=== PATIENT | female | born 1945 | race Caucasian/White ===

== ENCOUNTER 2023-11-09 22:17 | Emergency (ER) | payer MEDICARE, BC, OTHER, SELFPAY ==
--- NOTE | 2023-11-09 | ECG_ITS ---
Test Reason : ABD PAIN Blood Pressure : / mmHG Vent. Rate : 076 BPM Atrial Rate : 076 BPM P-R Int : 162 ms QRS Dur : 086 ms QT Int : 368 ms P-R-T Axes : 049 031 037 degrees QTc Int : 414 ms Normal sinus rhythm Normal ECG No previous ECGs available Referred By: Generic ED Physician Electronically Signed By:IOANA BRO
--- NOTE | ~2023-11-09 | CT_ITS ---
EXAMINATION: CT ABDOMEN AND PELVIS WITH CONTRAST CLINICAL INFORMATION: Left lower quadrant pain. COMPARISON: None available. TECHNIQUE: Multidetector volumetric images were obtained from the superior aspect of the liver through the pubic symphysis following administration 85 mL of Omnipaque 350 intravenous contrast. Sagittal and coronal reformatted images were obtained on the technologist's workstation. Oral contrast: No This CT examination was performed using dose optimization techniques as appropriate, variously including the following: *Automated exposure control *Adjustment of mA and/or kV according to patient size (this includes techniques or standardized protocols for targeted exams where dose is matched to indication/reason for exam; i.e. extremities or head) *Use of iterative reconstruction technique DLP: 571 mGy-cm FINDINGS: LUNG BASES: The visualized lung bases are unremarkable. LIVER, GALLBLADDER, AND BILIARY TREE: The liver is normal in size, shape, and attenuation. No focal hepatic lesion or biliary ductal dilatation is present. Multiple gallstones are noted. PANCREAS: Unremarkable. SPLEEN: Unremarkable. ADRENAL GLANDS: Unremarkable. KIDNEYS AND URETERS: The kidneys are normal in size, shape, and attenuation. No hydronephrosis, hydroureter, or calculi seen. No perinephric stranding. There is a 2.3 cm cyst upper pole left kidney. BLADDER: Unremarkable. GASTROINTESTINAL TRACT: Distal descending/sigmoid colon diverticulosis with proximal sigmoid colonic thickening and surrounding infiltration. The appendix is not identified. ABDOMINAL WALL: No significant hernia is appreciated. LYMPH NODES: Normal. VASCULAR: There is atherosclerotic plaque of the abdominal aorta and proximal branches. 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 PELVIC VISCERA: 3.5 cm low-density structure within the right adnexa with low attenuation values consistent with that of simple fluid. OSSEOUS STRUCTURES: There is diffuse thoracolumbar degenerative change. CT/CT abdomen pelvis w IV con IMPRESSION: 1. Acute sigmoid diverticulitis. 2. Cholelithiasis. 3. 3.5 cm low-density structure within the right adnexa with low attenuation values consistent with that of simple fluid. 4. Atherosclerotic plaque of the abdominal aorta and proximal branches. 1 cm splenic artery aneurysm. Fleischner guidelines were followed.
[2023-11-09 22:19] VITALS: BP 188/94; PULSE 82; RESP 18; TEMP 36.6; O2SAT 98; BMI 25.2
[2023-11-09 23:05] LABS: MANUAL DIFF FLAG NO
[2023-11-09 23:06] LABS: Basophils Absolute Auto 0.1 X10*3/uL (0.0-0.2); Basophils Percent Auto 0.5 % (0-2); Eosinophils Absolute Auto 0.1 X10*3/uL (0.0-0.4); Eosinophils Percent Auto 1.3 % (0-4); Hematocrit 37.4 % (37.0-47.0); Hemoglobin 12.6 g/dl (12.0-16.0); Imm Gran Abs Auto 0.04 X10*3/uL (0.00-0.03); Imm Gran Pct Auto 0.4 % (0.0-0.4); Lymphocytes Absolute Auto 1.8 X10*3/uL (1.2-4.9); Lymphocytes Percent Auto 17.2 % (20-40); Mean Corpuscular HGB Conc 33.7 g/dl (31.0-35.0); Mean Platelet Volume 10.2 fL (9.4-12.3); Monocytes Absolute Auto 0.8 X10*3/uL (0.1-1.2); Monocytes Percent Auto 7.5 % (2-11); Neutrophils Absolute Auto 7.8 x10*3/uL (2.0-8.3); Neutrophils Percent Auto 73.1 % (45-73); Platelet Count 269 X10*3/uL (160-400); Red Cell Distribution Width 13.2 % (11.0-16.0); White Blood Count 10.6 X10*3/uL (4.8-10.8)
--- NOTE | 2023-11-09 23:11 | ED.ABDPAIN ---
HPI - Abdominal Pain General Chief Complaint: Abdominal Pain Stated Complaint: left side abd pain Time Seen by Provider: 11/09/23 23:09 Source: patient Mode of arrival: ambulatory Limitations: no limitations History of Present Illness ED Provider: akua RICO narrative: Patient 78 years old with history of ischemic colitis and diverticulitis in the past comes here for similar pain in left lower quadrant started earlier today with nausea no blood in his stool no fever no chills no urinary complaint Related Data Previous Rx's ?Medication ?Instructions ?Recorded ciprofloxacin HCl 500 mg tablet 500 mg PO BID #20 tabs 11/10/23 (Cipro) metronidazole 500 mg tablet 500 mg PO BID 10 days #20 tabs 11/10/23 Allergies Allergy/AdvReac Type Severity Reaction Status Date / Time Penicillins Allergy Unknown Verified 11/09/23 22:25 Review of Systems Review of Systems Yes all other systems are reviewed and are negative FORMERLY [facility], [facility] Past Medical History Medical History (Updated 11/11/23 @ 00:00 by Geno Herbert) Ischemic colitis Diverticulitis Hypertension Social History Social History Alcohol intake: current Alcohol intake frequency: a few times a month Smoked in Last 30 Days: No Use of substances other than those prescribed or required for medical reasons: No Advance Directives: No Advance Directives Information Provided: No Do you have a plan to hurt others: No Plan Physical Exam ED Vital Signs: Vital Signs - 24 hr 11/09/23 22:19 11/10/23 00:00 Temperature 98 F 97.5 F Pulse Rate 82 83 Respiratory Rate 18 18 Blood Pressure 188/94 H 193/87 H Pulse Oximetry 98 98 Oxygen Delivery Method Room Air Room Air BMI result Body Mass Index 25.2 Appearance: Alert. Oriented X3. No acute distress. Eyes: PERRLA, No Nystagmus ENT: Pharynx normal. Oral Mucosa moist Neck: Normal inspection. Neck supple. CVS: Normal heart rate and rhythm. Pulses normal. Respiratory: No respiratory distress. Equal air entry bilateral, no wheezing/rales/rhonchi Abdomen: Soft and tender left lower quadrant with guarding no rebound tenderness. Bowel sounds are present, no mass palpable, no CVA tenderness Skin: Skin warm and dry. Normal skin color. Normal skin turgor. Extremities: No lower extremity edema. No calf tenderness Neuro: Oriented X 3. No motor deficit. Medical Decision Making Medical Decision Making [facility] Narrative: Patient's uncomplicated diverticulitis started on Flagyl and Cipro was given a dose of Levaquin in the ER Differential Diagnosis Differential Diagnoses: The differential diagnosis associated with the presentation includes Diverticulitis/ischemic bowel/kidney stone Lab Data [facility] Lab Attestation statement: I reviewed the patient's lab results. 11/09/23 22:57 11/09/23 22:57 Labs: Lab Results 11/09/23 11/10/23 Range/Units 22:57 00:09 WBC 10.6 (4.8-10.8) X10*3/uL RBC 4.20 (4.20-5.50) X10*6/uL Hgb 12.6 (12.0-16.0) g/dl Hct 37.4 (37.0-47.0) % MCV 89.0 (80.0-98.0) fL MCH 30.0 (27.0-33.0) pg MCHC 33.7 (31.0-35.0) g/dl RDW 13.2 (11.0-16.0) % Plt Count 269 (160-400) X10*3/uL MPV 10.2 (9.4-12.3) fL Immature Gran % (Auto) 0.4 (0.0-0.4) % Neut % (Auto) 73.1 H (45-73) % Lymph % (Auto) 17.2 L (20-40) % [place] % (Auto) 7.5 (2-11) % Eos % (Auto) 1.3 (0-4) % Baso % (Auto) 0.5 (0-2) % Lymph # (Auto) 1.8 (1.2-4.9) X10*3/uL [place] # (Auto) 0.8 (0.1-1.2) X10*3/uL Eos # (Auto) 0.1 (0.0-0.4) X10*3/uL Baso # (Auto) 0.1 (0.0-0.2) X10*3/uL Abs Immat Gran (auto) 0.04 H (0.00-0.03) X10*3/uL Absolute Neuts (auto) 7.8 (2.0-8.3) x10*3/uL Absolute Nucleated RBC 0.000 (0.0-0.012) X10*3/uL Nucleated RBC % (auto) 0.0 (0.0-0.2) /100WBC Sodium 140 (135-145) mmol/L Potassium 4.3 (3.3-5.1) mmol/L Chloride 103 (96-108) mmol/L Carbon Dioxide 29 (22-29) mmol/L Anion Gap 12 (12-20) BUN 21 H (9-16) mg/dL Creatinine 0.87 (0.5-1.4) mg/dL Estim Creat Clear Calc 44.8 Estimated GFR > 60 Random Glucose 124 H (60-115) mg/dL Calcium 9.8 (8.4-10.2) mg/dL Total Bilirubin 0.2 (0.0-1.0) mg/dL AST 19 (5-31) U/L ALT 18 (0-31) U/L Alkaline Phosphatase 91 (39-117) U/L Total Protein 6.9 (6.5-8.0) g/dL Albumin 4.1 (3.5-5.0) g/dL Lipase 30 (8-78) U/L Urine Color Yellow Urine Appearance Clear Urine pH 6.5 (5.0-9.0) Ur Specific [place] 1.015 (1.005-1.025) Urine Protein Negative (Neg-Trace) mg/dL Urine Glucose (UA) Negative (Negative) mg/dL Urine Ketones Negative (Negative) mg/dL Urine Blood Negative (Negative) Urine Nitrite Negative (Negative) Ur Leukocyte Esterase Small (1+) H (Negative) Urine RBC 0-2 (0-2) /HPF Urine WBC 6-10 H (0-5) /HPF Ur Squamous Epith Cells 0-2 (0-2) /HPF Urine Bacteria None Seen (None Seen) Hyaline Casts 0-2 (0-2) /LPF Independent Interpretation I performed an independent interpretation of an: CT Scan Radiology Impression Discussion of test interpretation with radiology: I have reviewed the radiologist's reading. Medications Administered Discontinued Medications Generic Name Dose Route Start Last Admin Trade Name Freq PRN Reason Stop Dose Admin Acetaminophen 650 mg 11/10/23 01:55 11/10/23 02:02 Acetaminophen 325 Mg Tablet PO 11/10/23 01:56 650 mg ONCE ONE Administration Sodium Chloride 1,000 mls @ 999 mls/hr 11/09/23 23:23 11/10/23 01:15 Ns IV 11/10/23 00:23 Infused .Q1H1M ONE Infusion Piperacillin Sod/Tazobactam 50 mls @ 100 mls/hr 11/10/23 01:17 11/10/23 01:36 Sod 3.375 gm/ Sodium Chloride IV 11/10/23 01:46 Not Given ONCE ONE Levofloxacin 500 mg in 100 mls @ 100 mls/hr 11/10/23 01:37 11/10/23 03:00 Levaquin IV 11/10/23 02:36 Infused ONCE ONE Infusion Iohexol 85 ml 11/09/23 23:42 11/09/23 23:43 Iohexol 350 Mg/Ml 100 Ml Infus..Btl IV 11/09/23 23:43 85 ml ONCE ONE Administration Lisinopril 15 mg 11/10/23 01:19 11/10/23 01:33 Lisinopril 5 Mg Tablet PO 11/10/23 01:20 15 mg ONCE ONE Administration Protocol Metronidazole 500 mg 11/10/23 01:37 11/10/23 02:00 Metronidazole 500 Mg Tablet PO 11/10/23 01:38 500 mg ONCE ONE Administration Morphine Sulfate 2 mg 11/09/23 23:23 11/10/23 00:04 Morphine Sulfate 4 Mg/Ml Cartridge IVPUSH 11/09/23 23:24 2 mg ONCE ONE Administration Protocol Ondansetron HCl 4 mg 11/09/23 23:23 11/10/23 00:04 Ondansetron Hcl 4 Mg/2 Ml Vial IVPUSH 11/09/23 23:24 4 mg ONCE ONE Administration Discharge Plan Discharge Clinical Impression: Diverticulitis Patient Disposition: Home, Self-Care Instructions: Diverticulitis (ED) Additional Instructions: Drink clear fluids advanced slowly in next few days if pain abdomen improved Report to the ER if pain in abdomen gets worse/fever Prescriptions: New ciprofloxacin HCl [Cipro] 500 mg tablet 500 mg PO BID Qty: 20 0RF metronidazole 500 mg tablet 500 mg PO BID 10 Days Qty: 20 0RF Interventions: ED Discharge Assessment Last Done: 11/10/23 03:17 Discharge Date/Time: 11/10/23 03:18 Print Language: Ivorian
[2023-11-09 23:19] LABS: Alanine Aminotransferase 18 U/L (0-31); Albumin Level 4.1 g/dL (3.5-5.0); Alkaline Phosphatase 91 U/L (39-117); Anion Gap 12 (12-20); Aspartate Amino Transferase 19 U/L (5-31); Bilirubin Total 0.2 mg/dL (0.0-1.0); Blood Urea Nitrogen 21 mg/dL (9-16); Calcium 9.8 mg/dL (8.4-10.2); Carbon Dioxide 29 mmol/L (22-29); Chloride 103 mmol/L (96-108); Creatinine Clr Calc Pharmacy 44.8; Estimated Glomerular Filt Rate > 60; Glucose Random 124 mg/dL (60-115); Lipase 30 U/L (8-78); Potassium 4.3 mmol/L (3.3-5.1); Sodium 140 mmol/L (135-145); Total Protein 6.9 g/dL (6.5-8.0)
[2023-11-09] MEDS: iohexoL 350 MG/ML 100 ML INFUS..BTL 85 ML IV (23:43)
--- NOTE | 2023-11-09 23:51 | PC.NURSE ---
Addendum entered by [place] 11/10/23 00:03: spoke with pt regarding meds and pt in agreement. Original Note: pt reports pain is intermittent and not too intense and refusing morphine. pt requests tylenol for pain. also refusing zofran as states she is not nauseous at this time. bp elevated md aware pt reports she usually takes 15mg lisinopril at 2200 howver hasnt taken dose tonight. aware.
[2023-11-10] VITALS: BP 193/87; PULSE 83; RESP 18; TEMP 36.4; O2SAT 98
[2023-11-10] MEDS: Morphine Sulfate 4 MG/ML CARTRIDGE 2 MG IVPUSH (00:04)
[2023-11-10] MEDS: ondansetron HCL 4 MG/2 ML VIAL IVPUSH (00:04)
[2023-11-10] MEDS: 0.9 % Sodium Chloride 1,000 ML 999 ML IV (00:04)
[2023-11-10 00:17] LABS: Appearance Urine Clear; Color Urine Yellow; Glucose Urine UA Negative (Negative); Leukocyte Esterase Urine Small (1+) (Negative); Nitrite Urine Negative (Negative); PH 6.5 (5.0-9.0); Specific Gravity - Urine 1.015 (1.005-1.025); UMIC TRIGGER UACC YES; Urine Blood Negative (Negative); Urine Ketones Negative (Negative); Urine Protein Negative (Neg-Trace)
[2023-11-10 00:22] LABS: Bacteria Urine None Seen (None Seen); Hyaline Casts Urine 0-2 /LPF (0-2); RBC Urine 0-2 /HPF (0-2); Squamous Epithelial Cell Urine 0-2 /HPF (0-2); UACC Culture Trigger YES
[2023-11-10 01:00] VITALS: BP 179/84; PULSE 79; RESP 17; O2SAT 98
[2023-11-10 01:33] VITALS: BP 181/84
[2023-11-10] MEDS: lisinopriL 5 MG TABLET 15 MG PO (01:33)
[2023-11-10] MEDS: levoFLOXacin/D5W 500 MG/100 ML PIGGYBACK 100 MG IV (02:00)
[2023-11-10] MEDS: metroNIDAZOLE 500 MG TABLET PO (02:00)
[2023-11-10 02:01] VITALS: BP 160/82; PULSE 81; RESP 16; O2SAT 97
[2023-11-10] MEDS: Acetaminophen 325 MG TABLET 650 MG PO (02:02)
[2023-11-10 03:17] VITALS: BP 141/67; PULSE 80; RESP 16; TEMP 36.9; O2SAT 98
== END 2023-11-10 03:18 | disposition home or self-care (01) ==
PROVIDERS: Emergency Provider Internal Medicine
DX: K57.32 Diverticulitis of large intestine without perforation or abscess without bleeding (principal); I10 Essential (primary) hypertension
CPT/HCPCS: 36415; 74177; 80053; 81001; 83690; 85025; 87086; 93005; 96361; 96365; 96375; 99284; 99285; J1956; J2270; J2405; J2543; Q9967